=== PATIENT | female | born 1995 | race Caucasian/White ===

== ENCOUNTER 2018-05-10 15:02 | Emergency (ER) | payer BC ==
--- NOTE | 2018-05-10 15:12 | PDOC ---
Rapid Medical Evaluation Chief Complaint: Respiratory Time Seen by Provider: 05/10/18 15:09 Medical Evaluation: 05/10/18 15:10 I performed a brief in person evaluation. CC: Rash HPI: Pt is a 22 Yo female who was diagnosed with flu and is on Tamiflu and continues with fever, LD Tylenol at 1200. LD Inburofen at 1500. No influenza vaccination PE: Skin: Clear Lungs: Clear Heart: RRR MS: Moves all extremities without difficulty Neuro: Alert Psych: Appropriate affect Pt will go to [facility] for further evaluation. Discharge Disposition - Diagnosis Fever Qualifiers: Encounter type: initial encounter - Referrals - Patient Instructions - Post Discharge Activity
[2018-05-10 15:14] VITALS: BP 127/83; PULSE 131; TEMP 102.8; BMI 19.5
[2018-05-10] MEDS ORDERED: DEXAMETHASONE LIQUID 0.5 MG/5 ML 240 ML BULK BOTTLE PO ONE (15:52)
[2018-05-10] MEDS ORDERED: ALBUTEROL SO4 2.5/IPRATROPIUM 0.5 INH SOL 3 ML VIAL.NEB. NEB ONE ×2 (15:52→15:57)
--- NOTE | 2018-05-10 15:53 | PDOC ---
History of Present Illness - General Chief Complaint: Respiratory Stated Complaint: FLU Time Seen by Provider: 05/10/18 15:09 History Source: Patient, Family Exam Limitations: No Limitations - History of Present Illness Initial Comments: 05/10/18 16:50 Pt is a 22 y/o F with no PMH who presents to the ED for fever, chills, headache and shortness of breath. Pt states she was diagnosed three days ago with the flu at urgent care. She has been taking tamiflu that was prescribed to her. She states she has been taking tylenol and motrin every 4 and 6 hours respectively, but she still feels unwell and states that it is hard to take a deep breath. Denies, chest pain, shortness of breath at rest and on exertion, nausea, vomiting, diarrhea and weakness. Past History - Travel Traveled outside of the country in the last 30 days: No Close contact w/someone who was outside of country & ill: No - Past Medical History Allergies/Adverse Reactions: Allergies Allergy/AdvReac Type Severity Reaction Status Date / Time No Known Allergies Allergy Verified 05/10/18 15:14 Home Medications: Ambulatory Orders Albuterol Sulfate Inhaler - [Ventolin HFA Inhaler -] 1 - 2 inh PO Q4H #1 inhaler 05/10/18 Azithromycin [Zithromax 250mg Tablets -] 250 mg PO UTDICT #6 tab 05/10/18 Guaifenesin [Robitussin] 10 ml PO Q8H #200 ml 05/10/18 Methylprednisolone [Medrol Dose Isaac] 4 mg PO ASDIR #21 tablet 05/10/18 COPD: No Other medical history: celiac - Surgical History Gastric Stapling: No Neurologic Surgery: No - Immunization History Immunization Up to Date: No - Suicide/Smoking/Psychosocial Hx Smoking History: Never smoked Have you smoked in the past 12 months: No Information on smoking cessation initiated: No Hx Alcohol Use: No Drug/Substance Use Hx: No Review of Systems - Review of Systems Able to Perform ROS?: Yes Comments:: 05/10/18 16:48 CONSTITUTIONAL: Present: Fever, chills, body aches Absent: diaphoresis, generalized weakness, malaise, loss of appetite HEENT: Present: rhinorrhea, nasal congestion, throat pain. Absent: difficulty swallowing, mouth swelling, ear pain, eye pain, visual Changes CARDIOVASCULAR: Absent: chest pain, loss of consciousness, palpitations, irregular heart rate, peripheral edema RESPIRATORY: Present: Cough Absent: shortness of breath, dyspnea with exertion, orthopnea, wheezing, stridor, hemoptysis GASTROINTESTINAL: Absent: abdominal pain, abdominal distension, nausea, vomiting, diarrhea, constipation, melena, hematochezia SKIN: Absent: rash, itching, pallor NEUROLOGIC: Present: headache Absent: focal weakness or paresthesias, dizziness, unsteady gait, seizure, mental status changes, bladder or bowel incontinence Is the patient limited Spanish proficient: No *Physical Exam - Vital Signs Last Vital Signs Temp Pulse Resp BP Pulse Ox 102.8 F H 131 H 20 127/83 95 05/10/18 15:10 05/10/18 15:10 05/10/18 15:10 05/10/18 15:10 05/10/18 15:10 - Physical Exam Comments: 05/10/18 16:48 GENERAL: Well developed, well nourished. Awake and alert. No acute distress. HEENT: Normocephalic, atraumatic. PERRLA, EOMI. No conjunctival pallor. Sclera are non- icteric. Moist mucous membranes. Oropharynx is with erythema posteriorly. No exudate or edema. Uvula is midline. NECK: Supple. Full ROM. No JVD. Carotid pulses 2+ and symmetric, without bruits. No thyromegaly. No lymphadenopathy. CARDIOVASCULAR: Regular rate and rhythm. No murmurs, rubs, or gallops. Distal pulses are 2+ and symmetric. PULMONARY: No evidence of respiratory distress. Lungs clear to auscultation bilaterally. No wheezing, rales or rhonchi. ABDOMINAL: Soft. Non-tender. Non-distended. No rebound or guarding. No organomegaly. Normoactive bowel sounds. MUSCULOSKELETAL Normal range of motion at all joints. No bony deformities or tenderness. No CVA tenderness. EXTREMITIES: No cyanosis. No clubbing. No edema. No calf tenderness. SKIN: Warm and dry. Normal capillary refill. No rashes. No jaundice. NEUROLOGICAL: Alert, awake, appropriate. Cranial nerves 2-12 intact. No deficits to light touch and temperature in face, upper extremities and lower extremities. No motor deficits in the in face, upper extremities and lower extremities. Normoreflexic in the upper and lower extremities. Normal speech. Toes are down- going bilaterally. Gait is normal without ataxia. PSYCHIATRIC: Cooperative. Good eye contact. Appropriate mood and affect. Moderate Sedation - Procedure Monitoring Vital Signs: Procedure Monitoring Vital Signs Temperature 102.8 F H 05/10/18 15:10 Pulse Rate 131 H 05/10/18 15:10 Respiratory Rate 20 05/10/18 15:10 Blood Pressure 127/83 05/10/18 15:10 O2 Sat by Pulse Oximetry (%) 95 05/10/18 15:10 Medical Decision Making - Medical Decision Making 05/10/18 16:52 Pt is a 22 y/o F who presents to the ED for worsening flu symptoms despite tamiflu treatment. On exam lungs are CTAB; however, fair aeration to the bases. Triage vitals notable for 95% saturation on room air. X-ray obtained from [facility] shows haziness in the lateral view retrocardially. Concern for PNA at this time. Will treat with a z-pack Pt given duoneb and steroids in the ED for her symptoms. Prior to re-evaluation, pt was incorrectly discharged from the department by nursing. Was unable to re-auscultate Spoke to the patient to give her x-ray results and to see how she was feeling after receiving treatment in the ED. Pt states that she feels much better after the medication. I asked the patient to return to the ED for re-evaluation; however, pt states she is unable to return to the ED at this time. Z-pack, albuterol inhaler, medrol dose pack and robitussin sent to the patient' s pharmacy. Emphasized the importance of supportive care including fluids Strict return precautions given including, difficulty breathing despite antibiotic treatment, increased weakness, chest tightness, or shortness of breath. *DC/Admit/Observation/Transfer Diagnosis at time of Disposition: Influenza Pneumonia Qualifiers: Pneumonia type: due to unspecified organism Laterality: unspecified laterality Lung location: unspecified part of lung Qualified Code(s): J18.9 - Pneumonia, unspecified organism - Discharge Dispostion Disposition: HOME Condition at time of disposition: Stable Decision to Admit order: No - Prescriptions Prescriptions: Albuterol Sulfate Inhaler - [Ventolin HFA Inhaler -] 1 - 2 inh PO Q4H #1 inhaler Azithromycin [Zithromax 250mg Tablets -] 250 mg PO UTDICT #6 tab Guaifenesin [Robitussin] 10 ml PO Q8H #200 ml Methylprednisolone [Medrol Dose Isaac] 4 mg PO ASDIR #21 tablet - Referrals - Patient Instructions - Post Discharge Activity
[2018-05-10] MEDS ORDERED: DEXAMETHASONE SOD PHOSPHATE 10 MG/1 ML VIAL ONE (15:57)
[2018-05-10] MEDS ORDERED: ACETAMINOPHEN 325 MG TABLET (FP) PO ONE (16:09)
[2018-05-10] MEDS ORDERED: ACETAMINOPHEN 325 MG TABLET (FP) ONE (16:10)
== END 2018-05-10 16:47 | disposition home or self-care (01) ==
LOC: JERFT 15:02
PROC: 3E0F7GC Introduction of Other Therapeutic Substance into Respiratory Tract, Via Natural or Artificial Opening (ICD-10-PCS; principal; 2018-05-10)
DX: J11.1 Influenza due to unidentified influenza virus with other respiratory manifestations (principal)
CPT/HCPCS: 71046-TC-FY; 87070; 87880; 99281-25